=== PATIENT | male | born 1965 | race African-American/Black ===

== ENCOUNTER 2017-07-09 19:52 | Emergency (ER) | payer OTHER ==
[~2017-07-09] VITALS: Ht 182.9 cm; Wt 83.9 kg
[~2017-07-09 19:52] MED LIST: NOHOMEMEDICATIONS; NORFLEX100 MG PO
[2017-07-09] MEDS ORDERED: NEOMYC-POLYM-DEX5 ML OPHTHALMIC (20:39)
[2017-07-09] MEDS ORDERED: HYDROCODONE-AP1 EAC6 PO (20:41)
== END 2017-07-09 20:47 | disposition home or self-care (01) ==
LOC: ER 19:52
DX: S05.02XA Injury of conjunctiva and corneal abrasion without foreign body, left eye, initial encounter (principal); Z88.0 Allergy status to penicillin; W22.8XXA Striking against or struck by other objects, initial encounter; Y93.89 Activity, other specified; Y92.89 Other specified places as the place of occurrence of the external cause; Y99.8 Other external cause status

== ENCOUNTER 2018-02-18 19:13 | Emergency (ER) | payer OTHER ==
[~2018-02-18] VITALS: Ht 182.9 cm; Wt 88.5 kg
[~2018-02-18 19:13] MED LIST changes: +HYDROCODONE-AP1 EAC6 PO; +NEOMYC-POLYM-DEX5 ML OPHTHALMIC
[2018-02-18] MEDS ORDERED: LIORESAL 10 MG10 MG PO (20:52)
[2018-02-18] MEDS ORDERED: IBUPROFEN 600600 M1 PO (20:52)
[2018-02-18] MEDS ORDERED: NORCO 5-325 TA1 EACH PO (20:52)
[2018-02-18 21:12] VITALS: BP 161/93
== END 2018-02-18 21:13 | disposition home or self-care (01) ==
LOC: ER 19:13
DX: R05 Cough (principal)

== ENCOUNTER → 2018-04-21 | Outpatient (CLI) | payer OTHER ==
[~2018-04-21] MED LIST changes: +IBUPROFEN 600600 M1 PO; +LIORESAL 10 MG10 MG PO; +NORCO 5-325 TA1 EACH PO
== END ==
LOC: RAD 12:04
DX: M25.511 Pain in right shoulder (principal)

== ENCOUNTER → 2018-06-12 | Outpatient (CLI) | payer OTHER | LOC: MRI 09:45 | DX: M75.101 Unspecified rotator cuff tear or rupture of right shoulder, not specified as traumatic (principal); M19.011 Primary osteoarthritis, right shoulder; M89.311 Hypertrophy of bone, right shoulder; R60.0 Localized edema ==

== ENCOUNTER → 2018-07-08 | Outpatient (CLI) | payer OTHER | LOC: MRI 09:23 | DX: M54.12 Radiculopathy, cervical region (principal); M48.02 Spinal stenosis, cervical region; M25.78 Osteophyte, vertebrae ==